=== PATIENT | female | born 1970 | race Two or more races ===

== ENCOUNTER 2024-11-04 09:50 | Emergency (ER) | payer BC, SELFPAY ==
[2024-11-04 10:21] VITALS: BP 140/77; PULSE 98; RESP 20; TEMP 36.6; O2SAT 100; BMI 30.2
--- NOTE | 2024-11-04 10:24 | EKG_ITS ---
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
[2024-11-04 10:42] LABS: Basophils # (Auto) 0.1 Thou/mm3 (0.0-0.2); Basophils % (Auto) 1 % (0-2.5); Eosinophils % (Auto) 0 % (0-10); Hematocrit 38.1 % (36.0-46.0); Hemoglobin 13.4 g/dL (12.0-16.0); Immature Granulocytes % (Auto) 0 % (0-0); Immature Granulocytes Auto 0.02 Thou/mm3 (0.00-0.00); Lymphocytes # (Auto) 2.9 Thou/mm3 (1.0-4.8); Lymphocytes % (Auto) 42 % (10-50); Mean Corpuscular HGB Conc 35.2 g/dl (31.0-37.0); Mean Corpuscular Hemoglobin 29.6 pg (25.0-35.0); Mean Corpuscular Volume 84 fL (80-100); Monocytes # (Auto) 0.3 Thou/mm3 (0.0-0.8); Monocytes % (Auto) 5 % (0-12); Neutrophils # (Auto) 3.5 Thou/mm3 (1.8-7.7); Neutrophils % (Auto) 52 % (37-80); Nucleated Red Blood Cell % 0 /100 WBC (0); Platelet Count 285 Thou/mm3 (140-440); RDW Standard Deviation 39.3 fL (36.4-46.3); Red Blood Count 4.53 Miln/mm3 (4.00-5.20); White Blood Count 6.8 Thou/mm3 (3.6-11.0)
--- NOTE | 2024-11-04 10:46 | XR_ITS ---
Examination: Abdomen sonogram, Limited Date and time of exam: November 04, 2024 1127 hours INDICATIONS: Severe abdominal pain 2 years Technique: Real-time castillo scale transabdominal sonographic images of the upper abdomen obtained. Findings: Normal gallbladder Normal common bile duct 0.2 cm Pancreatic head 2.6 cm Liver 14.7 cm fatty texture irregular contour Normal hepatopedal portal venous flow Patent IVC IMPRESSION: Normal gallbladder Suspect primary hepatocellular disease Consider CT scan abdomen pelvis post intravenous contrast follow-up
--- NOTE | 2024-11-04 10:46 | PD.EDRME ---
Rapid Medical Screening Exam RME Arrival date/time: 11/04/24 09:50 54-year-old female with history of breast cancer presents to the emergency department today complains of upper abdominal pain and chest pain patient reports that she has had pain ongoing for last couple of years patient reports colonoscopy as well as endoscopy and 2 CT scans and she reports that she still has pain Chief Complaint: Abdominal Pain Time Seen by Provider: 11/04/24 09:59 Vital signs: Vital Signs Temperature 97.9 F 11/04/24 10:21 Pulse Rate 98 11/04/24 10:21 Respiratory Rate 20 11/04/24 10:21 Blood Pressure 140/77 H 11/04/24 10:21 Pulse Oximetry (%) 100 11/04/24 10:21 Oxygen Delivery Method Room Air 11/04/24 10:21
[2024-11-04] MEDS: METOCLOPRAMIDE 5 MG TABLET 10 MG PO (10:52)
[2024-11-04] MEDS: HYDROcodone/APAP 5/325 TABLET 1 TAB PO (10:52)
[2024-11-04 11:23] LABS: Alanine Aminotransferase 19 U/L (10-49); Albumin, Serum 5.4 gm/dL (3.5-5.0); Albumin/Globulin Ratio 1.7 (1.2-2.2); Alkaline Phosphatase 357 U/L (46-116); Anion Gap 14 (7-16); Aspartate Amino Transferase 23 U/L (0-34); BUN/Creatinine Ratio 13 Ratio (12-20); Bilirubin,Total 0.7 mg/dL (0.3-1.2); Blood Urea Nitrogen 12 mg/dL (9-23); Calcium 10.1 mg/dL (8.3-10.6); Calcium (Corrected) 10.1 mg/dL (8.5-10.1); Carbon Dioxide 19.9 mMol/L (20.0-31.0); Chloride 103 mMol/L (98-107); Creatinine (Component) 0.9 mg/dL (0.6-1.3); Estimated Creatinine Clearance 65.9 mL/min (>60); Globulin 3.1 gm/dL (2.3-3.5); Glucose 107 mg/dL (74-106); Lipase 48 U/L (12-53); Osmolality,Calculated 273 (275-295); Potassium 3.6 mMol/L (3.4-5.1); Sodium 137 mMol/L (136-145); Total Protein 8.5 gm/dL (5.7-8.2); Troponin I < 0.002 ng/mL (0.0-0.045); eGFR > 60 See Note
--- NOTE | 2024-11-04 12:16 | XR_ITS ---
Examination: CT abdomen with intravenous contrast CT pelvis with intravenous contrast 2-D coronal reconstructions 2-D sagittal reconstructions Date and time of exam:November 04, 2024 1253 hours INDICATIONS: Abdominal pain and cramping beginning 6 days ago. CTDI: vol (mGy) 9.79 DLP: (mGycm) 515 Technique: Multiple axial sections of the abdomen and pelvis have been obtained. 64 slice high-resolution scanner used. 3 mm axial sections have been obtained, post intravenous injection 60 cc [id number] 2-D sagittal coronal reconstructions Low dose protocols adjustment MA KV according to patient size FINDINGS: There is nodular parenchymal disease in the right upper lobe which may be postinflammatory Intact right breast implant No focal liver or splenic lesion excepting tiny liver cysts No gallstones No pancreatic or adrenal mass No renal or ureteral calculi, no hydronephrosis Aorta normal size Normal appendix No bowel obstruction No diverticulitis No pelvic mass Urinary bladder intact Interval multiple osteolytic osteoblastic locking all vertebral bodies as well as the sacrum, gross bone destruction involving the first sacral segment Iliac bones acetabular regions anterior rami and hips also demonstrate osteolytic lesions Impression: Widespread osteolytic osteoblastic metastatic disease Recommend MRI thoracic lumbar spine post contrast follow-up to exclude epidural tumor as clinically warranted, recommend whole body bone scan Nodular parenchymal disease partly visualized in the right upper lobe Recommend CT chest and soft tissue neck post contrast follow-up for staging, consider PET CT scan for staging follow-up
--- NOTE | 2024-11-04 12:17 | EDNOTE_ITS ---
ED Abdominal Pain RME/HPI General Chief Complaint: Abdominal Pain Stated complaint: ABD CRAMP/PAIN X AM Time seen by provider: 11/04/24 09:59 Arrival date/time: 11/04/24 09:50 RME / HPI RME / HPI narrative: 54-year-old female patient with history of breast cancer, status post reconstruction of the breast, using abdominoplasty, came in for evaluation regarding upper abdominal pain and cramping, radiating to the chest, has been ongoing for several months, patient noticed it after breast reconstruction, severity moderate. Patient also complained of dull upper and lower back pain for several weeks now. Denies any weakness, lower extremity, denies any saddle anesthesia, denies any bladder incontinence or bowel incontinence. Patient was already seen by PCP, already had 2 CTs of the abdomen, she had colonoscopy and rest of the endoscopy, with no acute finding. Patient denies any cough denies any vomiting denies any diarrhea denies any fever. No medication was taken prior to arrival. She was first diagnosed with breast cancer 2018, on chemotherapy including oral chemotherapy for 5 years. She is seen by her oncologist once a year. Related Data Previous Rx's ?Medication ?Instructions ?Recorded acetaminophen 300 mg-codeine 30 mg 1 tab PO Q8H PRN pain #20 tabs 11/04/24 tablet ketorolac 10 mg tablet 10 mg PO Q6H PRN pain 5 days #20 11/04/24 tabs Allergies Allergy/AdvReac Type Severity Reaction Status Date / Time Penicillins Allergy Severe RASH / Verified 11/04/24 09:51 HIVES / ANY KIND OF CELLINS Review of Systems Review of Systems Narrative Review of Systems: Review of system reviewed and within normal limits except mentioned in HPI ED Exam Narrative Physical exam: VITAL SIGNS: Reviewed. GENERAL APPEARANCE: Alert and interactive, follows commands, no acute distress, HEAD AND FACE: Non-traumatic. ENT: PERRL, pink conjunctivitis, eyelid no trauma, Mucous membrane moist. NECK: Supple, nontender, no nuchal rigidity. CHEST: No tenderness, no crepitus, no paradoxical movement, no retractions. LUNGS: Clear, well ventilated, symmetric, no rales, no wheezing, no ronchi, no stridor, good breath sounds bilaterally. HEART: Regular rate, regular rhythm, no murmur, no gallops. ABDOMEN: Soft, positive bowel sounds, nondistended, no guarding, upper abdominal tenderness, no rebound, no masses, RECTAL: Deferred. GENITAL: Deferred. NEUROLOGICAL: Gross motor function intact sensory function intact, Appropriate for age. MUSCULOSKELETAL: low back nontender, full range of motion. EXTREMITIES: Nontender, full range of motion. SKIN: Color pink, dry, no rash, no lacerations, no abrasions, no contusions. LYMPHATICS: Deferred. Course Quality Measures none Orders Category Date Time Status CT Screening NOW Care 11/04/24 12:17 Active EKG (ED ONLY) *Do not use* NOW Care 11/04/24 10:[address] abdomen pelvis w con Stat Exams 11/04/24 12:16 Completed EKG (ED Only) Stat Exams 11/04/24 10:24 Draft US gall bladder Stat Exams 11/04/24 10:46 Completed CBC Stat Lab 11/04/24 10:30 Completed Comprehensive Metabolic Panel Stat Lab 11/04/24 10:30 Completed HCG Qualitative,Urine Stat Lab 11/04/24 11:59 Completed Lipase Stat Lab 11/04/24 10:30 Completed Troponin I Stat Lab 11/04/24 10:30 Completed UA, C/S IF [Urinalysis, C/S if Indicated] Stat Lab 11/04/24 11:59 Completed Dicyclomine [Bentyl] Med 11/04/24 12:16 Discontinued 20 mg PO X1 ONE HYDROcodone*/APAP 5/325 [Raymond 5/325] Med 11/04/24 10:24 Discontinued 1 tab PO X1 ONE Metoclopramide [Reglan] Med 11/04/24 10:24 Discontinued 10 mg PO X1 ONE Morphine Inj Med 11/04/24 12:38 Discontinued 4 mg IVP X1 ONE Morphine Inj [Morphine Sulf Inj] Med 11/04/24 12:16 Discontinued 4 mg IV X1 ONE oxyCODONE/APAP 5/325 [Percocet 5/325] Med 11/04/24 14:01 Discontinued 1 tab PO X1 ONE Vital Signs Vital signs: Vital Signs Temperature 97.9 F 11/04/24 10:21 Pulse Rate 98 11/04/24 10:21 Respiratory Rate 20 11/04/24 10:21 Blood Pressure 140/77 H 11/04/24 10:21 Pulse Oximetry (%) 100 11/04/24 10:21 Oxygen Delivery Method Room Air 12/06/24 10:21 Abdominal Pain MDM MDM Narrative MDM Narrative:: 54-year-old female patient with history of breast cancer, status post reconstruction of the breast, using abdominoplasty, came in for evaluation regarding upper abdominal pain and cramping, radiating to the chest, has been ongoing for several months, patient noticed it after breast reconstruction, severity moderate. Patient also complained of dull upper and lower back pain for several weeks now. Denies any weakness, lower extremity, denies any saddle anesthesia, denies any bladder incontinence or bowel incontinence. Patient was already seen by PCP, already had 2 CTs of the abdomen, she had colonoscopy and rest of the endoscopy, with no acute finding. Patient denies any cough denies any vomiting denies any diarrhea denies any fever. No medication was taken prior to arrival. She was first diagnosed with breast cancer 2018, on chemotherapy including oral chemotherapy for 5 years. She is seen by her oncologist once a year. Laboratory workup is significant for slightly elevated alkaline phosphatase, the rest of the labs unremarkable. Urinalysis no UTI no leukocytosis. Ultrasound of gallbladder came back unremarkable. CT scan of the abdomen and pelvis showed Widespread osteolytic osteoblastic metastatic disease Recommend MRI thoracic lumbar spine post contrast follow-up to exclude epidural tumor as clinically warranted, recommend whole body bone scan Nodular parenchymal disease partly visualized in the right upper lobe Recommend CT chest and soft tissue neck post contrast follow-up for staging, consider PET CT scan for staging follow-up Patient received morphine, with significant improvement of pain. I also added Percocet. Case discussed with patient thoroughly regarding abnormal CT scan finding of the abdomen and pelvis, and told her that she need to see her oncologist in 1 to 2 days. Patient is stable for discharge at this time. Information and plan of care was also discussed with his significant other's at the bedside. Patient data External records reviewed:: None Clinical information provided by:: none Social determinants that could affect healthcare access:: none Patient has the following chronic illnesses:: History of breast cancer How is presenting disease/condition affected by chronic disease/condition?: exacerbated by Evaluation data The following diagnostics were reviewed and interpreted by me:: lab results, radiology exam(s) and EKG tracing(s) Lab and/or radiology exams considered but not ordered:: None Interpretation Summary: EKG as interpreted by me shows sinus rhythm, ventricular rate of 90 bpm, no ST segment elevation or depression noted. Laboratory workup came back unremarkable except for slightly elevated alkaline phosphatase. CT scan of the abdomen and pelvis showed Widespread osteolytic osteoblastic metastatic disease Recommend MRI thoracic lumbar spine post contrast follow-up to exclude epidural tumor as clinically warranted, recommend whole body bone scan Nodular parenchymal disease partly visualized in the right upper lobe Recommend CT chest and soft tissue neck post contrast follow-up for staging, consider PET CT scan for staging follow-up Medications / Prescriptions Medications or Prescriptions considered but not ordered:: None Medication administrations:: Medication Administration History Discontinued Medications Hydrocodone Bitart/Acetaminophen (Hydrocodone/Apap 5/325 Tablet) 1 tab PO X1 ONE Stop: 11/04/24 10:25 Last Admin: 11/04/24 10:52 Dose: 1 tab Documented By: MARKY Dicyclomine HCl (Dicyclomine 10 Mg Capsule) 20 mg PO X1 ONE Stop: 11/04/24 12:17 Last Admin: 11/04/24 12:46 Dose: 20 mg Documented By: VIVIANE Metoclopramide HCl (Metoclopramide 5 Mg Tablet) 10 mg PO X1 ONE Stop: 11/04/24 10:25 Last Admin: 11/04/24 10:52 Dose: 10 mg Documented By: MARKY Morphine Sulfate (Morphine Sulf Inj 4 Mg/Ml Vial) 4 mg IV X1 ONE Stop: 11/04/24 12:17 Last Admin: 11/04/24 12:40 Dose: Not Given Documented By: VIVIANE Non-Admin Reason: Cancelled by Provider Morphine Sulfate (Morphine Sulf Inj 10 Mg/Ml Vial) 4 mg IVP X1 ONE Stop: 11/04/24 12:39 Last Admin: 11/04/24 12:47 Dose: 4 mg Documented By: VIVIANE Oxycodone/Acetaminophen (Oxycodone/Apap 5/325 Tablet) 1 tab PO X1 ONE Stop: 11/04/24 14:02 Raymond, morphine, and was also given Percocet. Patient was also given Reglan with significant improvement symptoms Consultations Consultation(s) initiated? (list below): No Diagnosis Differential diagnosis abdominal pain: abdominal pain and other (History of breast cancer with possible mets to the spine) Most likely diagnosis given after review of the tests above:: Recommend history of breast cancer with possible mets to the spine pending biopsy Admission Indicated Admission indicated?: not indicated Explain why admission is indicated or not indicated:: Stable for discharge Admission Request Was there a request for admission?: No Disposition Plan Disposition Plan: Discharge Discharge Attestation Discharge Attestation: The patient and all family members were given an opportunity to ask questions and understood the discharge instructions. Discharge instructions specifically effects, indications for sooner follow up or return to the emergency department, and the expected course of current diagnosis. Patient condition: Stable Discharge Plan Plan Patient Disposition: HOME (Self Care) Disposition Comment: stable Prescriptions/Referrals Prescriptions/Med Rec: New ketorolac 10 mg tablet 10 mg PO Q6H PRN (Reason: pain) 5 Days Qty: 20 0RF acetaminophen-codeine 300-30 mg tablet 1 tab PO Q8H PRN (Reason: pain) Qty: 20 0RF Referrals: Keith Umanzor DO [Primary Care Provider] - In 1 week Problem List Clinical Impression: Abdominal pain, Metastasis to spinal column, History of breast cancer Patient/Caregiver Discharge Instructions Discharge Activity: activity as tolerated Education Materials: Abdominal Pain Additional Instructions: Thank you for the opportunity for serving you today. You are stable for discharged . You are advised to: Follow-up with your oncologist in 1 to 2 days Return to ED for worsening of symptoms Increase oral fluids Take medication as prescribed Print Language: Frisian Stand Alone Forms: [employer] Award Info., Patient Portal Info Letter ANDRE/ROCÍO Supervising Physician JOSE Supervising Physician: MD Angelo
[2024-11-04] MEDS: DICYCLOMINE 10 MG CAPSULE 20 MG PO (12:46)
[2024-11-04] MEDS: MORPHINE SULF INJ 10 MG/ML VIAL 4 MG IVP (12:47)
[2024-11-04 12:59] VITALS: BP 113/60; PULSE 74; RESP 18; TEMP 36.9; O2SAT 95
[2024-11-04 13:00] LABS: Collection Type, Urine Clean Catch
--- NOTE | 2024-11-04 13:00 | PC.NURSE ---
Pt taken to CT.
[2024-11-04 13:06] LABS: Bacteria,Urine Rare; Bilirubin,Urine Negative (Negative); Blood,Urine Negative (Negative); Clarity,Urine Clear (Clear/Hazy); Color,Urine Colorless (Lt Yel-Yel); Culture Indicated,Urine Not Indicated; Glucose, Urine Negative (Negative); HCG Qualitative,Urine Negative; Ketones,Urine Negative (Negative); Leukocyte Esterase,Urine Negative (Negative); Nitrite,Urine Negative (Negative); PH,Urine 7.5 (5.0-7.0); Protein,Urine Negative (Neg - Trace); RBC,Urine 1 /hpf (0-3); Squamous Epithelial Cell,Urine 1 /hpf (0-5); Urobilinogen,Urine Negative mg/dL (0.0-1.0); WBC,Urine 1 /hpf (0-5)
[2024-11-04] MEDS: oxyCODONE/APAP 5/325 TABLET 1 TAB PO (14:19)
[2024-11-04 14:30] VITALS: BP 115/65; PULSE 75; RESP 18; TEMP 36.6; O2SAT 95
--- NOTE | 2024-11-04 14:30 | PC.NURSE ---
disk from radiology provided.
== END 2024-11-04 14:30 | disposition home or self-care (01) ==
PROVIDERS: Nurse Practitioner Primary Care; Emergency Provider Emergency Medicine; PCP Family Medicine
DX: R10.9 Unspecified abdominal pain (principal); C79.51 Secondary malignant neoplasm of bone; Z85.3 Personal history of malignant neoplasm of breast; R94.31 Abnormal electrocardiogram [ECG] [EKG]
CPT/HCPCS: 36415; 74177; 76705; 80053; 81001; 81025; 83690; 84484; 85025; 93005; 96374; 99285; A4649; J2270; Q9967; A9270